=== PATIENT | male | born 1945 | race Caucasian/White ===

== ENCOUNTER 2023-09-16 20:23 | Emergency (ER) | payer OTHER, BC ==
[2023-09-16 20:30] VITALS: BP 158/83; PULSE 91; RESP 17; TEMP 97.8; BMI 31.2
[2023-09-16] MEDS ORDERED: ACETAMINOPHEN 325 MG TABLET (FP) PO ONE (23:56)
[2023-09-16] MEDS ORDERED: ACETAMINOPHEN 325 MG TABLET (FP) ONE (23:59)
== END 2023-09-17 00:19 | disposition home or self-care (01) ==
LOC: FER 20:23
PROC: 0HQ1XZZ Repair Face Skin, External Approach (ICD-10-PCS; principal; 2023-09-16)
DX: S42.291A Other displaced fracture of upper end of right humerus, initial encounter for closed fracture (principal); S01.111A Laceration without foreign body of right eyelid and periocular area, initial encounter; W01.198A Fall on same level from slipping, tripping and stumbling with subsequent striking against other object, initial encounter
CPT/HCPCS: 70450-TC; 70480-TC; 70486-TC; 73030-TC-RT-FY; 99284-25

== ENCOUNTER 2023-09-24 10:24 | Emergency (ER) | payer OTHER, BC ==
[2023-09-24 10:38] VITALS: BP 126/78; PULSE 72; RESP 18; TEMP 97.8; BMI 31.2
== END 2023-09-24 11:34 | disposition home or self-care (01) ==
LOC: FER 10:24
DX: Z48.02 Encounter for removal of sutures (principal)
CPT/HCPCS: 99281-25